=== PATIENT | male | born 1945 | race Caucasian/White ===

== ENCOUNTER 2020-12-17 09:50 | Outpatient (RCR) | payer MEDICARE, SELFPAY | END 2021-02-05 09:55 | disposition home or self-care (01) | LOC: PT 09:50 | PROVIDERS: Visit Provider Internal Medicine Cardiovascular Disease | DX: I25.10 Atherosclerotic heart disease of native coronary artery without angina pectoris (principal); I50.9 Heart failure, unspecified | CPT/HCPCS: 93798 ==

== ENCOUNTER 2023-04-17 09:40 | Outpatient (CLI) | payer MEDICARE, SELFPAY | END 2023-04-17 23:59 | LOC: RT 09:41 | PROVIDERS: PCP Family Medicine; Visit Provider Nurse Practitioner Family | DX: Z79.899 Other long term (current) drug therapy (principal); E78.5 Hyperlipidemia, unspecified; I10 Essential (primary) hypertension; R41.3 Other amnesia | CPT/HCPCS: 95816 ==

== ENCOUNTER 2023-04-20 10:39 | Outpatient (CLI) | payer MEDICARE, SELFPAY ==
[2023-04-20 11:18] LABS: Basophils # 0.1 K/mm3 (0-0.2); Basophils % 1.1 % (0.1-2.0); Eosinophils # 0.1 K/mm3 (0.0-0.4); Eosinophils % 2.4 % (0.1-12.0); Hematocrit 47.6 % (42.0-52.0); Hemoglobin 15.3 g/dL (14.1-18.0); Lymphocytes # 1.6 K/mm3 (0.7-4.5); Lymphocytes % 34.5 % (10-50); Mean Corpuscular HGB Conc 32.1 g/dL (31.8-35.4); Mean Corpuscular Hemoglobin 31.1 pg (27.0-31.2); Mean Corpuscular Volume 97.1 fl (80-94); Mean Platelet Volume 7.1 fl (7.4-10.4); Monocytes # 0.6 K/mm3 (0.1-1.0); Monocytes % 13.3 % (1.7-9.3); Neutrophils # 2.2 K/mm3 (1.8-7.8); Neutrophils % 48.7 % (37.0-80.0); Platelet Count 225 K/mm3 (142-424); Red Cell Distribution Width 14.9 % (11.5-17.5); White Blood Count 4.6 K/mm3 (4.8-10.8)
[2023-04-20 11:29] LABS: Chloride 104 mmol/L (98-107); Sodium 140 mmol/L (136-145)
[2023-04-20 11:32] LABS: Alanine Aminotransferase 22 U/L (12-78); Alkaline Phosphatase 100 U/L (38-126); Aspartate Amino Transferase 38 U/L (17-59); Bilirubin,Total 0.9 mg/dl (0.2-1.3); Blood Urea Nitrogen 21 mg/dl (9-20); Estimated Glomerular Filt Rate 82 ml/min (>60); GFR (African American) 99 ML/MIN (>60)
[2023-04-20 11:33] LABS: Albumin Level 4.4 g/dl (3.5-5.0); Albumin/Globulin Ratio 1.8 (1.1-1.8); Calcium 9.7 mg/dl (8.4-10.2); Carbon Dioxide 31 mmol/L (22.0-30.0); Globulin 2.5 g/dL (1.3-3.2); Glucose 96 mg/dl (74-100); Total Protein,Serum 6.9 g/dl (6.3-8.2)
[2023-04-20 12:00] LABS: Erythrocyte Sedimentation Rate 15 mm/hr (0-20)
[2023-04-20 12:06] LABS: Hemoglobin A1C 6.1 % (4.0-6.0)
[2023-04-20 12:44] LABS: Thyroid Stimulating Hormone 2.64 uIU/mL (0.465-4.68)
[2023-04-20 12:55] LABS: C-Reactive Protein < 0.3 mg/L (0-4)
[2023-04-20 13:19] LABS: Vitamin B12 380 pg/mL (239-931)
[2023-04-21 15:27] LABS: Rapid Plasma Reagin Ab Titer Non Reactive titer (NonRea<1:1)
[2023-04-24 10:14] LABS: Antinuclear Antibodies (ANA) Negative
== END 2023-04-20 23:59 ==
LOC: LAB 10:40
PROVIDERS: PCP Family Medicine; Visit Provider Nurse Practitioner Family
DX: Z68.36 Body mass index [BMI] 36.0-36.9, adult (principal); G47.33 Obstructive sleep apnea (adult) (pediatric); R73.03 Prediabetes; E78.49 Other hyperlipidemia; I10 Essential (primary) hypertension; R41.3 Other amnesia; E66.9 Obesity, unspecified
CPT/HCPCS: 36415; 80053; 82607; 82746; 83036; 84443; 85025; 85651; 86038; 86140; 86225; 86235; 86593

== ENCOUNTER 2023-05-03 08:02 | Outpatient (CLI) | payer MEDICARE, SELFPAY ==
--- NOTE | 2023-05-03 08:02 | MR_ITS ---
FINAL REPORT CLINICAL HISTORY: Memory loss, history of skin cancer 23ml prohance injected COMPARISON: None FINDINGS: Multiplanar MR imaging of the brain was performed without and with contrast. There is no evidence of intracranial hemorrhage or mass. No abnormal extra-axial fluid collection is seen. Small scattered foci of abnormal signal in the deep white matter which is nonspecific and probably due to chronic ischemia. There is no evidence of shift of the midline structures. The posterior fossa and brainstem have an unremarkable appearance. No area of abnormal restricted diffusion is identified. No abnormal contrast enhancement is seen. Normal major vessel vascular flow voids are noted. The paranasal sinuses have normal signal voids. IMPRESSION: No acute intracranial abnormality identified. Atrophy and mild changes of chronic ischemia. Reviewed, Interpreted and Dictated by Mario Razo MD Transcribed by Juanis Garcia Authenticated and [facility]
[2023-05-03] MEDS: SODIUM CHLORIDE 0.9% 10ML SYR (RAD ONLY) 10 ML IV (09:05)
[2023-05-03] MEDS: GADOTERIDOL INJ 17ML SYRINGE 23 ML IV (09:05)
== END 2023-05-03 23:59 ==
LOC: RAD 08:02
PROVIDERS: PCP Family Medicine; Visit Provider Nurse Practitioner Family
DX: Z68.36 Body mass index [BMI] 36.0-36.9, adult (principal); G47.33 Obstructive sleep apnea (adult) (pediatric); R73.03 Prediabetes; E78.49 Other hyperlipidemia; I10 Essential (primary) hypertension; Z85.828 Personal history of other malignant neoplasm of skin; R41.3 Other amnesia; E66.9 Obesity, unspecified
CPT/HCPCS: 70553; A9576

== ENCOUNTER → 2023-05-16 12:54 | Outpatient (CLI) | payer MEDICARE, SELFPAY | LOC: SL 12:55 | PROVIDERS: PCP Family Medicine; Visit Provider Nurse Practitioner Family | DX: Z68.36 Body mass index [BMI] 36.0-36.9, adult (principal); G47.33 Obstructive sleep apnea (adult) (pediatric); R73.03 Prediabetes; E78.49 Other hyperlipidemia; I10 Essential (primary) hypertension; E66.9 Obesity, unspecified | CPT/HCPCS: 94762 ==

== ENCOUNTER 2023-09-04 14:49 | Outpatient (POV) | payer MEDICARE, SELFPAY ==
--- NOTE | 2023-09-04 15:08 | A.OFFVIS_ITS ---
HPI Data of Consult Patient: new to practice Consult date: 09/04/23 Requesting Physician: Giana Mckay APRN Primary Care Provider: Kalen Jimenez Consult Narrative Reason for consult: Left hip pain History of present illness: Mr. Turpin is a 77 year old male who presents today as a new patient. He is a referral from Dr. Kalen Jimenez' office. Today he rates his pain a 2 out of 10 currently however does state that when his pain flares it will go to a 10 out of 10 in severity. He does state the pain can get worse with increased activity and that [place] did [place] get [place] from the beach and that some days walking was fine however other days he wouldnt be able to function for long periods of time and would have to stop and take multiple breaks. Patient does state when it does flareup it does interfere with his ability to perform activities of daily living such as cooking and cleaning. Patient denies any prior surgery or injection history. He does state it has been going on for about 4 to 5 months unrelated to any specific injury or trauma. He does state that sometimes rubbing or adding pressure along the outer aspect of his left hip does help the pain. Patient has been using Tylenol arthritis along with heat and Voltaren over the last several months with no additional relief. Patient denies any prev ious imaging. patient is not on any scheduled medications. His Ander has been reviewed and is appropriate. CC: Giana Mckay APRN [facility] Disclaimer: The information contained in this section may have been updated after the patient was seen, as this information can be updated by other users. Medical History (Updated 09/04/23 @ 15:29 by Giana Mckay APRN) History of renal calculi Gout Hypothyroidism Surgical History History of ankle surgery History of heart artery stent Family History Other Cancer Coronary artery disease Hyperlipidemia Social History Smoking Status: Never smoker alcohol intake: former substance use type: denies use current occupational status: retired Travel in the last 8 weeks: None household members: spouse housing: house marital status: Review of Systems Review of Systems Review of systems:: pertinent systems reviewed and negative unless documented below Review of systems (narrative): Review of Systems: General: No recent weight changes, no fever, no sleep disturbances Respiratory: No cough, no shortness of air, no recurring pulmonary infections Cardiovascular/peripheral vascular: No chest pain, no palpitations, no edema, no shortness of breath Gastrointestinal: No new onset incontinence, normal bowel movements reported Genitourinary: No new onset incontinence Musculoskeletal: Left hip pain Psychiatric: [Normal mood/affect] Neurological: [Denies weakness in extremities], [denies balance issues] Meds Home Medications and Allergies Home Medications ?Medication ?Instructions ?Recorded ?Confirmed ?Type allopurinol 300 mg tablet 300 mg PO DAILY 04/13/23 09/04/23 History atorvastatin 80 mg tablet 80 mg PO HS 04/13/23 09/04/23 History bisoprolol fumarate 5 mg tablet 5 mg PO DAILY 04/13/23 09/04/23 History colchicine 0.6 mg tablet 0.6 mg PO DAILY 04/13/23 09/04/23 History fluoxetine 20 mg capsule 20 mg PO DAILY 04/13/23 09/04/23 History levothyroxine 88 mcg tablet 88 mcg PO DAILY 04/13/23 09/04/23 History omeprazole 20 mg capsule,delayed 20 mg PO DAILY 04/13/23 09/04/23 History release potassium chloride 20 mEq 20 meq PO DAILY 04/13/23 09/04/23 History tablet,extended release(part/cryst) rivaroxaban 20 mg tablet (Xarelto) 20 mg PO DAILY 04/13/23 09/04/23 History memantine 5 mg tablet 5 mg PO BID #60 tabs 06/07/23 09/04/23 Rx New Prescriptions to Start Prescriptions: Allergies Allergy/AdvReac Type Severity Reaction Status Date / Time oxaprozin [From Daypro] Allergy Intermediate Rash Verified 09/04/23 15:04 Objective Narrative: Physical Exam: General: Alert and oriented x3, no acute distress, pleasant and cooperative Lungs: Respirations even and unlabored, symmetrical chest expansion Eyes: PERRL Musculoskeletal: Flexion and extension of lumbar [spine] somewhat guarded secondary to pain, [antalgic gait noted] point tenderness along left greater trochanteric bursa Neurological: Speech clear, no gross sensory deficit Assessment and Plan *Assessment and plan (1) Greater trochanteric bursitis of left hip: Status: Acute Category: Medical Code(s): M70.62 - Trochanteric bursitis, left hip (2) Left hip pain: Status: Acute Category: Medical Code(s): M25.552 - Pain in left hip Plan Patient is experiencing worsening pain in his left hip with limited range of motion of his lumbar spine and point tenderness along his left greater trochante antonio bursa. I have discussed with the patient that he may benefit from a greater trochanteric bursa injection. Risk and benefits were discussed with the patient and he would like to proceed forward with this plan of care. Patient has tried and failed conservative therapy including continued at home stretching exercise for longer than 6 weeks with no additional change. Patient has also tried ove [id number] medications, heat and ice and topicals. Patient will be ordered compounded cream. Patient will be scheduled for a left greater trochanteric bursa injection under fluoroscopy. Patient has been instructed to contact the clinic with any concerns before the next appointment. Dr. Calderon has reviewed this note and agrees with this plan of care. This note was dictated using voice recognition software and make contain errors or omissions. All injections are used with Lidocaine or Bupivacaine and Depo Medrol.
[2023-09-04 15:24] VITALS: BP 138/69; PULSE 52; RESP 18; O2SAT 94; BMI 34.0
== END 2023-09-04 23:59 | disposition home or self-care (01) ==
LOC: SC.PAIN 14:50
PROVIDERS: PCP Family Medicine; Visit Provider Nurse Practitioner Family
DX: M70.62 Trochanteric bursitis, left hip (principal); M25.552 Pain in left hip
CPT/HCPCS: 99202; G0463

== ENCOUNTER 2023-09-19 11:03 | Day surgery (SDC) | payer MEDICARE, SELFPAY ==
[2023-09-19 11:10] VITALS: BP 158/89; PULSE 51; RESP 16; TEMP 36.7; O2SAT 94; BMI 35.5
--- NOTE | 2023-09-19 11:40 | P.PCN_ITS ---
Procedure Date: 09/19/23 Time: 11:35 Anesthesiologist:: Robert Gonzalez CRNA Complications:: None Pre-procedure Diagnosis:: Left trochanteric bursitis. Post-procedure Diagnosis:: Same. Indications for Procedure:: Patient is a pleasant 78-year-old male comes our clinic today for left trochante antonio bursa injection. Patient has extreme point tenderness over the left lateral hip area. He rates his pain 7/10. Procedure Details:: Procedure:Left trochanteric bursa injection under fluoroscopy We then moved to the left trochanteric bursa.~ C-arm fluoroscopy was used to view the left greater trochanter.~ The skin and subcutaneous tissues overlying the left greater trochanter were anesthetized using lidocaine, 1.5% and a 25- gauge needle.~ After this, a 22-gauge spinal needle was inserted and advanced until it contacted the left greater trochanter.~ Dye was injected and good spread was seen throughout the left trochanteric bursa. After this, approximately 5 mL of bupivacaine, 0.25% and Depo-Medrol, 40 mg was incrementally injected into the left trochanteric bursa.~ The patient tolerated the procedure well with no complications. Plan and Disposition:: Patient was discharged without incident.
[2023-09-19 11:43] VITALS: BP 137/60; PULSE 46; RESP 18; O2SAT 95
[2023-09-19] MEDS: BUPIVACAINE 0.25% 10ML INJ 25 MG IJ (13:14)
[2023-09-19] MEDS: LIDOCAINE 1% 5ML PF VIAL 5 ML (13:14)
[2023-09-19] MEDS: methylPREDNISolone ACETATE 80MG/ML VIAL 80 MG (13:14)
[2023-09-19 13:19] VITALS: BP 144/74; PULSE 75; RESP 18; O2SAT 96
[2023-09-19 13:23] VITALS: BP 144/74; PULSE 75; RESP 18; O2SAT 96
== END 2023-09-19 11:43 | disposition home or self-care (01) ==
PROVIDERS: PCP Family Medicine; Visit Provider Nurse Anesthetist, Certified Registered
DX: M70.62 Trochanteric bursitis, left hip (principal)
CPT/HCPCS: 20610; 77002; J1010

== ENCOUNTER 2023-10-05 15:19 | Outpatient (POV) | payer MEDICARE, SELFPAY ==
[2023-10-05 15:30] VITALS: BP 158/74; PULSE 51; RESP 16; O2SAT 96; BMI 33.5
--- NOTE | 2023-10-05 15:41 | A.OFFVIS_ITS ---
[facility] Disclaimer: The information contained in this section may have been updated after the patient was seen, as this information can be updated by other users. Medical History History of renal calculi Gout Hypothyroidism Surgical History History of ankle surgery History of heart artery stent Family History Other Cancer Coronary artery disease Hyperlipidemia Social History Smoking Status: Never smoker alcohol intake: former substance use type: denies use current occupational status: unemployed Travel in the last 8 weeks: None household members: spouse housing: house marital status: PM Subjective & Objective Subjective Subjective:: Patient is a pleasant 78-year-old male who presents today for follow-up of left trochanteric bursa injection on 09/19/2023. Today he rates his pain a 4 out of 10 and states that he really did not notice huge amounts of improvement following this injection. He does feel like he is still having pain in and around that hip and buttocks area and describes it as an aching, throbbing sensation that is worse with increased activity or ambulation. He does state the pain will get worse and was typically going about a 6 out of 10 or more depending on how much walking he does. Patient does state that the pain interferes with his ability perform activities of daily living such as cooking and cleaning. Patient is interested in additional injection therapy. Patient does state that he did end up getting the compounded cream and it did help some. He states that at least helps take the edge off. His Ander has been reviewed and is appropriate. Review of Systems: General: No recent weight changes, no fever, no sleep disturbances Respiratory: No cough, no shortness of air, no recurring pulmonary infections Cardiovascular/peripheral vascular: No chest pain, no palpitations, no edema, no shortness of breath Gastrointestinal: No new onset incontinence, normal bowel movements reported Genitourinary: No new onset incontinence Musculoskeletal: Left hip/buttocks pain Psychiatric: [Normal mood/affect] Neurological: [Denies weakness in extremities], [denies balance issues] Pain at rest (0-10 scale): 6 Objective Objective:: Physical Exam: General: Alert and oriented x3, no acute distress, pleasant and cooperative Lungs: Respirations even and unlabored, symmetrical chest expansion Eyes: PERRL Musculoskeletal: Flexion and extension of lumbar [spine] somewhat guarded secondary to pain, [antalgic gait noted] point tenderness along the left piriformis muscle Neurological: Speech clear, no gross sensory deficit Has patient had previous pain injection?: Yes Percent improvement in pain since last injection: Minimal Conservative treatment options previously tried: Home exercise plan Length of treatment: Longer than 6 weeks Meds Home Medications and Allergies Home Medications ?Medication ?Instructions ?Recorded ?Confirmed ?Type allopurinol 300 mg tablet 300 mg PO DAILY 04/13/23 10/05/23 History atorvastatin 80 mg tablet 80 mg PO HS 04/13/23 10/05/23 History bisoprolol fumarate 5 mg tablet 5 mg PO DAILY 04/13/23 10/05/23 History colchicine 0.6 mg tablet 0.6 mg PO DAILY 04/13/23 10/05/23 History fluoxetine 20 mg capsule 20 mg PO DAILY 04/13/23 10/05/23 History levothyroxine 88 mcg tablet 88 mcg PO DAILY 04/13/23 10/05/23 History omeprazole 20 mg capsule,delayed 20 mg PO DAILY 04/13/23 10/05/23 History release potassium chloride 20 mEq 20 meq PO DAILY 04/13/23 10/05/23 History tablet,extended release(part/cryst) rivaroxaban 20 mg tablet (Xarelto) 20 mg PO DAILY 04/13/23 10/05/23 History memantine 10 mg tablet 10 mg PO BID #60 tabs 09/14/23 10/05/23 Rx New Prescriptions to Start Prescriptions: Allergies Allergy/AdvReac Type Severity Reaction Status Date / Time oxaprozin [From Daypro] Allergy Intermediate Rash Verified 09/19/23 11:16 Assessment and Plan *Assessment and plan (1) Myofascial pain on left side: Status: Acute Category: Medical Code(s): M79.18 - Myalgia, other site (2) Piriformis syndrome of left side: Status: Acute Category: Medical Code(s): G57.02 - Lesion of sciatic nerve, left lower limb Plan Patient is experiencing still pain all along his left hip and buttocks area. Patient did have point tenderness along his left piriformis muscle during today's visit. I did discuss with patient risk and benefits of piriformis injection. He would like to proceed forward with this plan of care. Patient has tried and failed conservative therapy including continued at home stretching exercise for longer than 6 weeks. Patient will be scheduled for a left piriformis muscle injection. This will be done without fluoroscopy or ultrasound. Patient has been instructed to contact the clinic with any concerns before the next appointment. Dr. Calderon has reviewed this note and agrees with this plan of care. This note was dictated using voice recognition software and make contain errors or omissions. All injections are used with Lidocaine or Bupivacaine and Depo Medrol.
== END 2023-10-05 23:59 | disposition home or self-care (01) ==
LOC: SC.PAIN 15:21
PROVIDERS: PCP Family Medicine; Visit Provider Nurse Practitioner Family
DX: M79.18 Myalgia, other site (principal); G57.02 Lesion of sciatic nerve, left lower limb; Z73.89 Other problems related to life management difficulty
CPT/HCPCS: 99212; G0463

== ENCOUNTER 2023-10-24 13:39 | Day surgery (SDC) | payer MEDICARE, SELFPAY ==
--- OUTSIDE RECORDS SUMMARY | 2023-10-24 13:42 | XMS_ITS | Continuity of Care Document ---
Author Organization [facility] Phone Care Team Providers Care Ortho Tech Name Role Phone BRIDGET DIDI Lin Primary Care AUSTIN BONDS Primary Attending AUSTIN BONDS Admitting AUSTIN BONDS Unavailable ALLERGIES AND ADVERSE REACTIONS ALLERGIES AND ADVERSE REACTIONS Code System Allergy Substance Adverse Reaction Date Reaction (Severity) Comment [place] [address] RXNorm DAYPRO Adverse reaction to substance un active [id number] on October 18, 2023 4:05:[place] [address] RXNorm LISINOPRIL Adverse reaction to substance u active [id number] on October 18, 2023 4:05:43 PM [place] 7352 RXNorm NIASPAN Adverse reaction to substance u active [id number] on October 18, 2023 4:05:43 PM [place] 8683 RXNorm PROBENECID Adverse reaction to substance u active [id number] on October 18, 2023 4:05:43 PM [facility] FAMILY HISTORY RELATION: Father Status: Cause of : Unknown Age at : Unknown SNOMED-CT Diagnosis Age At Onset Information not available RELATION: Mother Status: Cause of : Unknown Age at : Unknown SNOMED-CT Diagnosis Age At Onset [id number] Malignant neoplastic disease RESULTS Patient: KARINANABILDelia ROB Tesfaye JR Date of : September [birth year] LABORATORY RESULTS Information is not available LABORATORY NARRATIVE RESULTS Information is not available RADIOLOGY RESULTS ORDER 100: LUMBAR 2 TO 3V (L OINC: 50631-9) ORDER DATE: October 18, 2023 4:19:00 PM [facility] PERFORMING LAB: [address] [id number] Final Result Date: October 18, 2023 4:42:36 PM [address] [place] [address] Name: ROB JEAN Exam Date: 10/18/2023 : 1945 Age 78 years Gender: M Physician: Facility: [facility] Facility HSV: Outpatient Exam: LUMBAR 2 TO 3V PROCEDURE: XR LUMBAR SPINE 2-3 VIEWS TECHNIQUE: Limited 3 views lumbar spine. COMPARISON: CT abdomen pelvis 04/11/2023. HISTORY: Lower back pain without trauma/injury. No trauma. FINDINGS: The vertebral body heights are preserved. Multilevel bone and disc degenerative changes. There is no spondylolisthesis. Alignment is satisfactory. Right upper quadrant postoperative changes consistent with cholecystectomy. 1.1 cm rounded calcification overlying the right renal shadow, possibly calculus. IMPRESSION: 1. No acute bone abnormality. 2. Multilevel degenerative changes. 3. Possible right renal calculus. Electronically signed by: Zohaib Laughlin MD 10/18/2023 01:30 PM EDT RP Dictated By: Zohaib Laughlin Transcribed By: Transcribed On: 10/18/2023 12:42 PM Electronically signed by: Zohaib Laughlin 10/18/2023 Thank you for referring ROB JEAN to [facility]. Legally authenticated by GUILLAUME FLOYD MD 2023-10-18 12:42:36 ORDER 200: HIP LT 2V (LOINC: 51886-1) ORDER DATE: October 18, 2023 4:19:00 PM [facility] PERFORMING LAB: [address] [id number] Final Result Date: October 18, 2023 4:42:[address] [place] [address] Name: ROB JEAN Exam Date: 10/18/2023 : 1945 Age 78 years Gender: M Physician: Facility: [facility] Facility HSV: Outpatient Exam: HIP LT 2V EXAMINATION: XR PELVIS 1-2 VIEWS TECHNIQUE: Two views of the left hip were obtained. COMPARISONS: None available. HISTORY: Pain without Trauma/Injury. Low back pain radiating down to left leg for one month getting worse. No trauma. FINDINGS: No discrete fracture or malalignment. Moderate to severe osteoarthritic degenerative changes. The joint spaces are located. The soft tissues are unremarkable appearance. No discrete radiopaque foreign bodies identified. 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 Electronically signed by: Zohaib Laughlin MD 10/18/2023 01:25 PM EDT Dictated By: Zohaib Laughlin Transcribed By: Transcribed On: 10/18/2023 12:42 PM Electronically signed by: Zohaib Laughlin 10/18/2023 Thank you for referring ROB JEAN to [facility]. Legally authenticated by GUILLAUME FLOYD MD 2023-10-18 12:42:44 ORDER 300: PELVIS 1 TO 2V (L OINC: 24561-2) ORDER DATE: October 18, 2023 4:19:00 PM [facility] PERFORMING LAB: [address] [id number] Final Result Date: October 18, 2023 4:42:[address] [place] [address] Name: ROB JEAN Exam Date: 10/18/2023 : 1945 Age 78 years Gender: M Physician: Facility: [facility] Facility HSV: Outpatient Exam: PELVIS 1 TO 2V EXAMINATION: XR PELVIS 1-2 VIEWS TECHNIQUE: One view of the pelvis obtained. COMPARISONS: CT abdomen pelvis 04/11/2023. HISTORY: Pelvic pain, low back pian radiating down to left leg for 1 month. No trauma. FINDINGS: No discrete fracture or malalignment. Bilateral hip joint osteoarthritis, left worse than right. The joint spaces are located. The soft tissues are unremarkable appearance. No discrete radiopaque foreign bodies identified. IMPRESSION: No discrete acute bone abnormality. Electronically signed by: Zohaib Laughlin MD 10/18/2023 01:26 PM EDT Dictated By: Zohaib Laughlin Transcribed By: Transcribed On: 10/18/2023 12:42 PM Electronically signed by: Zohaib Laughlin 10/18/2023 Thank you for referring ROB JEAN to [facility]. Legally authenticated by GUILLAUME FLOYD MD 2023-10-18 12:42:48 PATHOLOGY NARRATIVE RESULTS Information is not available MICROBIOLOGY RESULTS No Micro Labs/Results Exist for Patient BLOOD ADMIN RESULTS Information is not available MEDICATIONS HOME MEDICATIONS Status RXNORM [facility] Medication Dose Route Frequency Dates Comments Reported By Updated By Active 765062 49967 34726 1 allopurinol 300 mg tablet 300.0 MG ORAL DAILY Last Dose: [id number] on 2023 4:05:46 PM UT Active 331740 56431 10467 0 atorvastatin 80 mg tab 80.0 MG ORAL DAILY Last Dose: [id number] on 2023 4:05:46 PM UT Active 300671 44632 13926 0 bisoprolol fumarate 5 mg tab 2.5 MG ORAL DAILY Last Dose: [id number] on 2023 4:05:46 PM UT Active 490131 76733 27102 0 colchicine 0.6 mg tablet 0.6 MG ORAL DAILY Last Dose: [id number] on 2023 4:05:46 PM UT Active 308117 25093 05951 9 levothyroxin e 88 mcg tab 88.0 MCG ORAL DAILY Last Dose: [id number] on 2023 4:05:46 PM UT Active 040845 66783 09061 0 potassium chloride 20 mEq tablet, extended release 20.0 MEQ ORAL DAILY Last Dose: [id number] on 2023 4:05:46 PM UTC Active FreeT extMe d Prilosec 20 MG 20.0 MG ORAL DAILY Last Dose: [id number] on 2023 4:05:46 PM UTC Active 245332 22580 04259 0 Triamterene- HCTZ Tablet 37.5-25 MG 1.0 TAB ORAL DAILY Last Dose: [id number] on 2023 4:05:46 PM UTC Active 1464614 57322 41244 0 Xarelto Tablet 20 MG 20.0 MG ORAL DAILY Last Dose: [id number] on 2023 4:05:46 PM UT DISCHARGE MEDICATIONS Status RXNORM NDC Medication Dose Route Frequency Dates Comments Physician Updated By No Discharge Medication Info rmation Available INPATIENT MEDICATIONS Status RXNORM NDC Medication Dose Route Frequency Rat e Quantity Dates Comments Physician Updated By Discont inued [id number] 2828 3025 803 METHYLPREDN ISOLONE SODIUM SUCC 125 MG SOLR 125.0 MG INTRAV ENOUS ONE TIME ONLY Start: 2023 4:39:0 0 PM UTC End: 2023 4:39:0 0 PM UTC VAMSHI Willoughby MD INTERFAC ED on 2023 4:38:00 PM UT Discont inued 066760 1998 4089 511 NORCO 5-325 MG TABS 1.0 TAB ORAL ONE TIME ONLY Start: 2023 4:41:0 0 PM UTC End: 2023 4:41:0 0 PM UTC VAMSHI Willoughby MD INTERFAC ED on 2023 4:39:00 PM UT SOCIAL HISTORY SOCIAL HISTORY SNOMED-CT Social History Element Description Effective Dates Offered Cessation Comment UpdatedBy [id number] Historical Tobacco smoking status Never Smoked [id number] on May 22, 2023 2:32:01 PM UT SOCIAL HISTORY - Gender Sex: Male SOCIAL HISTORY - Status : status i nformation is not available Intention in Next Year: intention information is not available SOCIAL HISTORY - Sexual Behavior Sexual Orientation Gender Identity SNOMED-CT Description SNO MED -CT Description Activity Level No of Partners Partner Type UpdatedBy Information is not available VITAL SIGNS PATIENT VITAL SIGNS This section displays the mo st recent value for each vital sign as of October 20, 2023 5:20:33 AM UT Loinc Code Vital Sign Activity Date Result Updated By 8310-5 Body temperature October 17 3:57:00 PM UTC 98.6 [degF] [id number] on October 19, 2023 5:35:[place] [address]-1 Body weight Measured October 072023 5:35:10 PM UTC 109.769 kg (242.0 lb) [id number] on October 19, 2023 5:35:10 PM UTC 8462-4 Diastolic blood pressure October 18, 2023 5:18:00 PM UTC 73.0 mm[Hg] [id number] on October 19, 2023 5:35:12 PM UTC 8867-4 Heart rate October 17 5:18:00 PM UTC 68 /min [id number] on October 19, 2023 5:35:12 PM UTC 43155-7 Oxygen saturation in Arterial blood by Pulse oximetry October 18, 2023 5:18:00 PM UTC 97.0 % RHX6951 on October 19, 2023 5:35:12 PM UTC 8480-6 Systolic blood pressure October 18, 2023 5:18:00 PM UTC 130.0 mm[Hg] VPL4749 on October 19, 2023 5:35:12 PM UTC PEDIATRIC GROWTH CHART - VITAL SIGNS This section displays Head C ircumference Percentile, Weight for Length Percentile and BMI Percentile Loinc Code Pediatric Measure Age (Months) Result Updat ed By No Pediatric Growth Chart Pe rcentile Information Available. HEALTH CONCERNS Problems Concern Status Health Concern problem infor mation not available. Smoking Status Status Years Used Consumed packs p er day Health Concern smoking histo ry information not available. Family History Concern Status Health Concern family histor y information not available. ENCOUNTERS ENCOUNTER INFORMATION Reason for Visit BACK PAIN Admission October 18, 2023 3:52:00 PM [place] C [address] [address] Discharge October 18, 2023 5:34:00 PM UT C DISCHARGED TO HOME OR SELF CARE ENCOUNTER DIAGNOSES Notes information is not aleyda ilable. Code System Diagnosis Onset Date Diagnosis information is not available. 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, LUMBAR REGION [id number] on October 20, 2023 5:19:56 AM UTC I10 ICD10 ESSENTIAL (PRIMARY) HYPERTEN VINCE [id number] on October 20, 2023 5:19:56 AM UT K21.9 ICD10 GASTRO-ESOPHAGEA L REFLUX DISEASE WITHOUT ESOPHAGITIS [id number] on October 20, 2023 5:19:56 AM UT E78.5 ICD10 HYPERLIPIDEMIA, UNSPECIFIED YKR5578 on October 20, 2023 5:19:56 AM UT E66.9 ICD10 OBESITY, UNSPECIFIED [id number] on October 20, 2023 5:19:56 AM UT Z68.33 ICD10 BODY MASS INDEX [BMI] 33.0-3 3.9, ADULT GVQ7921 on October 20, 2023 5:19:56 AM UT E03.9 ICD10 HYPOTHYROIDISM, UNSPECIFIED [id number] on October 20, 2023 5:19:56 AM [facility] Z79.890 ICD10 HORMONE REPLACEMENT THERAPY YSU2361 on October 20, 2023 5:19:56 AM UT Z95.5 ICD10 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 [id number] on October 20, 2023 5:19:56 AM UT Z88.8 ICD10 ALLERGY STATUS T O OTHER DRUGS, MEDICAMENTS AND BIOLOGICAL SUBSTANCES [id number] on October 20, 2023 5:19:56 AM [facility] Z79.899 ICD10 OTHER ART HANDLER (CURRENT) DR UG THERAPY [id number] on October 20, 2023 5:19:56 AM [facility] Z79.01 ICD10 ART HANDLER (CURRE NT) USE OF ANTICOAGULANTS [id number] on October 20, 2023 5:19:56 AM [facility] CARE TEAM Care Ortho Tech Role DIDI GILL Primary Care AUSTIN BONDS Primary Attending AUSTIN BONDS Admitting AUSTIN BONDS Referring CARE TEAM CARE assembler chassis Role on Team Status Start Date End Date Update d By VAMSHI Willoughby MD Referring normal October 18, 2023 4:43:15 PM [facility] October 18, 2023 5:34:00 PM [facility] [id number] on October 18, 2023 4:43:15 PM [facility] VAMSHI Willoughby MD Attending normal October 18, 2023 4:43:15 PM [facility] October 18, 2023 5:34:00 PM [facility] [id number] on October 18, 2023 4:43:15 PM [facility] VAMSHI Willoughby MD Admitting normal October 18, 2023 4:43:15 PM [facility] October 18, 2023 5:34:00 PM [facility] [id number] on October 18, 2023 4:43:15 PM [facility] BRIDGET Lin MD PHY PCP normal October 18, 2023 3:52:54 PM [facility] October 18, 2023 5:34:00 PM [facility] [id number] on October 18, 2023 4:43:15 PM [facility]
--- OUTSIDE RECORDS SUMMARY | 2023-10-24 13:42 | XMS_ITS | Continuity of Care Document ---
Author Organization [facility] Phone Care Team Providers Care Ambulance Officer Name Role Phone BRIDGET DIDI Lin Primary Care SEIVERSYUMIKO Primary Attending SEIVERS, YUMIKO Jensen Unavailable SEIVERS, YUMIKO W Admitting ALLERGIES AND ADVERSE REACTIONS ALLERGIES AND ADVERSE REACTIONS Code System Allergy Substance Adverse Reaction Date Reaction (Severity) Comment [place] [address] RXNorm DAYPRO Adverse reaction to substance un active [id number] on July 29, 2021 2:19:[place] [address] RXNorm LISINOPRIL Adverse reaction to substance u active HUZ1575 on July 29, 2021 2:19:25 PM [place] 7354 RXNorm NIASPAN Adverse reaction to substance u active CTM5237 on July 29, 2021 2:19:25 PM UT 8673 RXNorm PROBENECID Adverse reaction to substance u active [id number] on July 29, 2021 2:19:25 PM UT FAMILY HISTORY RELATION: Father Status: Cause of : Unknown Age at : Unknown SNOMED-CT Diagnosis Age At Onset Information not available RELATION: Mother Status: Cause of : Unknown Age at : Unknown SNOMED-CT Diagnosis Age At Onset [id number] Malignant neoplastic disease RESULTS Patient: KARINANABILDelia ROB Tesfaye Date of : [birth year] 17 46 LABORATORY RESULTS ORDER 300: BUN (LOINC: 3094- 0) ORDER DATE: December 06, 2022 11:19:00 AM UT Specimen Source: Serum/Plasm a PERFORMING LAB: [address] [id number] Result Comment: Final Result Date: December 06, 2022 11:37:00 AM UT (TECH: MRB) LOINC TEST FLAG RESULT REFERENCE RANGE UPDA GREGORY BY 3094-0 Urea nitrogen [Mass/volume] in Serum or Plasma N 16 mg/dL 7 mg/dL - 18 mg/dL December 06 11:37:00 AM [facility] (TECH: MRB) ORDER 400: CREATININE (LOINC : 2160-0) ORDER DATE: December 06, 2022 11:19:00 AM UT Specimen Source: Serum/Plasm a PERFORMING LAB: [address] [id number] Result Comment: Final Result Date: December 06, 2022 11:37:00 AM [facility] (TECH: MRB) LOINC TEST FLAG RESULT REFERENCE RANGE UPDA GREGORY BY 2160-0 Creatinine [Mass/volume] in Serum or Plasma N 0.8 mg/dL 0.8 mg/dL - 1.3 mg/dL November 11:37:00 AM [facility] (TECH: MRB) 93613-1 Glomerular filtratio n rate/1.73 sq M.predicted by Creatinine-based formula (MDRD) N 100 mL/min >60 December 06, 2022 11:37:00 AM [facility] (TECH: MRB) LABORATORY NARRATIVE RESULTS Information is not available RADIOLOGY RESULTS ORDER 100: CT CHEST WITH CON TRAST (LOINC: 93857-7) ORDER DATE: December 06, 2022 11:19:00 AM [facility] PERFORMING LAB: [address] [id number] Final Result Date: November 082022 12:39:[address] [place] [address] Name: ROB JEAN Exam Date: 12/06/2022 : 1945 Age 77 years Gender: M Physician: YUMIKO DIANE Facility: [facility] Facility HSV: Outpatient Exam: CT CHEST WITH CONTRAST CT SCAN OF THE CHEST WITHOUT CONTRAST COMPARISON: 02/26/2021 HISTORY: Thoracic aortic aneurysm. PROCEDURE: Axial images were obtained from the lung apex to the mid abdomen by computed tomography. FINDINGS: CHEST: There is no axillary adenopathy. There is no hilar or mediastinal adenopathy. Heart size is enlarged. The ascending aorta measures 5.1 cm. When compared to a similar slice location on the prior CT this measured 5.0 cm, not significant changed. There is atherosclerosis. There is no dissection. There is no pericardial or pleural effusion. There is a small hiatal hernia. There are multiple bilateral renal cysts measuring up to 4.5 cm on the right. The gallbladder is surgically absent. There is scattered atelectasis. No suspicious infiltrate or nodules identified. IMPRESSION: Stable aneurysmal enlargement of the ascending aorta. Films reviewed , interpreted and dictated by Dr. Johnson. Transcribed by Jaylen Iverson PA-C. Dictated By: CYRIL JOHNSON Transcribed By: CYRIL JOHNSON Transcribed On: 12/06/2022 8:39 AM Electronically signed by: CYRIL JOHNSON 12/06/2022 Thank you for referring ROB JEAN to [facility]. Legally authenticated by POPE CYRIL Dooley DO 2022-12-06 08:39:28 PATHOLOGY NARRATIVE RESULTS Information is not available MICROBIOLOGY RESULTS No Micro Labs/Results Exist for Patient BLOOD ADMIN RESULTS Information is not available TREATMENT PLAN DISCHARGE MEDICATIONS Status RXNORM Medication Dose Route Frequency Dates Comments U pdated By Patient discharge medication information is not available. PATIENT OPEN ORDERS Code System Description Frequency Occurrences Priority [place] [address]-5 [facility] Collection method - Specimen ONE TIME 0 Routine December 06, 2022 11:19:00 AM [facility] SEIVERS YUMIKO W SENIOR WINDOWS ENGINEER [id number] on December 06, 2022 11:19:00 AM [facility] SCHEDULED PROCEDURES Code System Description Status Scheduled Date Upd ated By Patient scheduled procedure information is not available. MEDICATIONS HOME MEDICATIONS Status RXNORM Medication Dose Route Frequency Dates Comments R eported By Updated By Drug Treatment Unknown DISCHARGE MEDICATIONS Status RXNORM Medication Dose Route Frequency Dates Comments Physic vale Updated By No Discharge Medication Info rmation Available INPATIENT MEDICATIONS Status RXNORM Medication Dose Route Frequency Rate Quantity Dates Comments Physician Updated By No Inpatient Medication Info rmation Available SOCIAL HISTORY SOCIAL HISTORY SNOMED-CT Social History Element Description Effective Dates Offered Cessation Comment UpdatedBy [id number] Historical Tobacco smoking status Never Smoked Yes [id number] on February 21, 2018 2:29:40 PM [facility] SOCIAL HISTORY - Gender Sex: Male SOCIAL HISTORY - Sexual Behavior Sexual Orientation Gender Identity SNOMED-CT Description SNO MED -CT Description Activity Level No of Partners Partner Type UpdatedBy Information is not available HEALTH CONCERNS Problems Concern Status Health Concern problem infor mation not available. Smoking Status Status Years Used Consumed packs p er day Health Concern smoking histo ry information not available. Family History Concern Status Health Concern family histor y information not available. ENCOUNTERS ENCOUNTER INFORMATION Reason for Visit I71.20 Admission December 06, 2022 11:06:00 AM UTC [address] [address] Discharge December 06, 2022 5:06:00 PM UTC DISCHARGED TO HOME OR SELF CARE ENCOUNTER DIAGNOSES Notes information is not aleyda ilable. Code System Diagnosis Onset Date Diagnosis information is not available. 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, WITHOUT RUPTURE, UNSPECIFIED [id number] on November 28, 2022 5:18:32 PM UT CARE TEAM Care Ambulance Officer Role DIDI GILL Primary Care YUMIKO DIANE Primary Attending YUMIKO DIANE Referring YUMIKO DIANE Admitting CARE TEAM CARE home management supervisor Role on Team Status Start Date End Date Update d By BRIDGET Lin MD PHY PCP normal November 28, 2022 5:18:32 PM UTC December 06, 2022 5:06:00 PM UTC [id number] on November 28, 2022 5:18:32 PM UTC SEIVERS YUMIKO Jensen APRN Referring normal November 28, 2022 5:18:32 PM UTC December 06, 2022 5:06:00 PM UTC [id number] on November 28, 2022 5:18:32 PM UT BENEDICTO Jensen APRN Attending normal November 28, 2022 5:18:32 PM UTC December 06, 2022 5:06:00 PM UTC [id number] on November 28, 2022 5:18:32 PM UT SEIVERS YUMIKO Jensen APRN Admitting normal November 28, 2022 5:18:32 PM UTC December 06, 2022 5:06:00 PM UTC [id number] on November 28, 2022 5:18:32 PM UTC
--- OUTSIDE RECORDS SUMMARY | 2023-10-24 13:42 | XMS_ITS | Continuity of Care Document ---
Author Organization [facility] Phone Care Team Providers Care Dry Yard Worker Name Role Phone ADRIANNA SARAVIA Primary Attending MEAGAN GAMBINO Unavailable DIDI GILL Primary Care ADRIANNA SARAVIA Admitting ADRIANNA SARAVIA Surgeon [phone] ALLERGIES AND ADVERSE REACTIONS ALLERGIES AND ADVERSE REACTIONS Code System Allergy Substance Adverse Reaction Date Reaction (Severity) [place] [address] RXNorm DAYPRO Adverse reaction to substance un active [id number] on July 29, 2021 2:19:[place] [address] RXNorm LISINOPRIL Adverse reaction to substance u active [id number] on July 29, 2021 2:19:25 PM UT 7324 RXNorm NIASPAN Adverse reaction to substance u active [id number] on July 29, 2021 2:19:25 PM UT 8629 RXNorm PROBENECID Adverse reaction to substance u active [id number] on July 29, 2021 2:19:25 PM UT ASSESSMENTS Hypertensive disorder ; Hypothyroidism ; FAMILY HISTORY RELATION: Father Status: Cause of : Unknown Age at : Unknown SNOMED-CT Diagnosis Age At Onset Information not available RELATION: Mother Status: Cause of : Unknown Age at : Unknown SNOMED-CT Diagnosis Age At Onset [id number] Malignant neoplastic disease PROBLEMS PATIENT PROBLEMS Code Description/Comments Category Status Upda cain By [id number] Hypertensive disorder active DEY 5462 on May 22, 2023 2:30:55 PM UT [id number] Hypothyroidism active [id number] on May 22, 2023 2:30:57 PM UT TREATMENT PLAN DISCHARGE MEDICATIONS Status RXNORM Medication Dose Route Frequency Dates Comments U pdated By Continued 126635 allopurinol 300 mg tablet 300 MG BY MOUTH ONCE DAILY Prescri bed: May 24, 2023 11:38:4 3 AM [facility] [id number] on May 24, 2023 11:38:43 AM [facility] Continued 732809 levothyroxine 88 mcg tab 88 MCG BY MOUTH ONCE DAILY Prescri bed: May 24, 2023 11:38:4 3 AM [facility] [id number] on May 24, 2023 11:38:43 AM [facility] Continued 841526 colchicine 0.6 mg tablet 0.6 MG BY MOUTH ONCE DAILY Prescri bed: May 24, 2023 11:38:4 3 AM [facility] [id number] on May 24, 2023 11:38:43 AM [facility] Continued 077074 bisoprolol fumarate 5 mg tab 2.5 MG BY MOUTH ONCE DAILY Prescri bed: May 24, 2023 11:38:4 3 AM [facility] [id number] on May 24, 2023 11:38:43 AM [facility] Continued 621984 atorvastatin 80 mg tab 80 MG BY MOUTH ONCE DAILY Prescri bed: May 24, 2023 11:38:4 3 AM [facility] [id number] on May 24, 2023 11:38:43 AM [facility] Continued Prilosec 20 MG 20 MG BY MOUTH ONCE DAILY Prescri bed: May 24, 2023 11:38:4 3 AM [facility] [id number] on May 24, 2023 11:38:43 AM [facility] Continued 220629 potassium chloride 20 mEq tablet, extended release 20 MEQ BY MOUTH ONCE DAILY Prescri bed: May 24, 2023 11:38:4 3 AM [facility] [id number] on May 24, 2023 11:38:43 AM [facility] Continued 2166373 Xarelto Oral Tablet 20 MG 20 MG BY MOUTH ONCE DAILY Prescri bed: May 24, 2023 11:38:4 3 AM [facility] [id number] on May 24, 2023 11:38:43 AM [facility] Continued 772930 Triamterene-HCT Z Oral Tablet 37.5-25 MG 1 TAB BY MOUTH ONCE DAILY Prescri bed: May 24, 2023 11:38:4 3 AM [facility] [id number] on May 24, 2023 11:38:43 AM [facility] PATIENT OPEN ORDERS Code System Description Frequency Occurrences Priority [place] [address]-8 [facility] Specimen type ONE TIME 0 Routine May 24, 2023 7:25:00 PM [facility] MANJIT RODAS MD [id number] on May 24, 2023 7:26:00 PM [facility] SCHEDULED PROCEDURES Code System Description Status Scheduled Date Upd ated By Patient scheduled procedure information is not available. MEDICATIONS HOME MEDICATIONS Status RXNORM [facility] Medication Dose Route Frequency Dates Comments Reported By Updated By Active [id number] 64088 81238 0 atorvastatin 80 mg tab 80.0 MG BY MOUTH DAILY Last Dose: PATIENT [id number] on May 22, 2023 2:26:35 PM [facility] Active 242519 74181 55015 0 bisoprolol fumarate 5 mg tab 2.5 MG BY MOUTH DAILY Last Dose: PATIENT [id number] on May 22, 2023 2:26:58 PM [facility] Active 470033 60878 15802 9 levothyroxin e 88 mcg tab 88.0 MCG BY MOUTH DAILY Last Dose: PATIENT [id number] on May 22, 2023 2:27:39 PM [facility] Active Cy selby Prilosec 20 MG 20.0 MG BY MOUTH DAILY Last Dose: PATIENT [id number] on May 22, 2023 2:28:31 PM [facility] Active 720328 91753 32742 0 potassium chloride 20 mEq tablet, extended release 20.0 MEQ BY MOUTH DAILY Last Dose: PATIENT [id number] on May 22, 2023 2:28:04 PM [facility] Active 056123 34365 26485 1 allopurinol 300 mg tablet 300.0 MG BY MOUTH DAILY Last Dose: PATIENT [id number] on May 22, 2023 2:26:13 PM [facility] Active 462577 60174 03775 0 colchicine 0.6 mg tablet 0.6 MG BY MOUTH DAILY Last Dose: PATIENT [id number] on May 22, 2023 2:27:17 PM [facility] Active 242938 00096 37926 0 Triamterene- HCTZ Oral Tablet 37.5-25 MG 1.0 TAB BY MOUTH DAILY Last Dose: PATIENT [id number] on May 22, 2023 2:29:17 PM [facility] Active 3560115 12585 20189 0 Xarelto Oral Tablet 20 MG 20.0 MG BY MOUTH DAILY Last Dose: PATIENT [id number] on May 22, 2023 2:29:47 PM [facility] DISCHARGE MEDICATIONS Status RXNORM [facility] Medication Dose Route Frequency Dates Comments Physician Updated By Javan selby [id number] 6427 0121 001 allopurinol 300 mg tablet 300.0 MG BY MOUTH ONCE DAILY Prescr ibed: May 24, 2023 11:38: 43 AM [facility] MANJIT RODAS MD PHY [id number] on May 24, 2023 11:38:43 AM UTC Continue d 306678 2626 0096 809 levothyroxi ne 88 mcg tab 88.0 MCG BY MOUTH ONCE DAILY Prescr ibed: May 24, 2023 11:38: 43 AM [facility] MANJIT RODAS MD PHY [id number] on May 24, 2023 11:38:43 AM UTC Continue d 972866 5685 8037 230 colchicine 0.6 mg tablet 0.6 MG BY MOUTH ONCE DAILY Prescr ibed: May 24, 2023 11:38: 43 AM [facility] MANJIT RODAS MD PHY [id number] on May 24, 2023 11:38:43 AM UTC Continue d 475218 1811 7027 030 bisoprolol fumarate 5 mg tab 2.5 MG BY MOUTH ONCE DAILY Prescr ibed: May 24, 2023 11:38: 43 AM [facility] MANJIT RODAS MD, PHY [id number] on May 24, 2023 11:38:43 AM UTC Continue d 794455 3766 1017 510 atorvastati n 80 mg tab 80.0 MG BY MOUTH ONCE DAILY Prescr ibed: May 24, 2023 11:38: 43 AM [facility] MANJIT RODAS MD PHY [id number] on May 24, 2023 11:38:43 AM UTC Continue d Free Text Med Prilosec 20 MG 20.0 MG BY MOUTH ONCE DAILY Prescr ibed: May 24, 2023 11:38: 43 AM [facility] MANJIT RODAS MD PHY [id number] on May 24, 2023 11:38:43 AM UTC Continue d 572361 4252 0013 400 potassium chloride 20 mEq tablet, extended release 20.0 MEQ BY MOUTH ONCE DAILY Prescr ibed: May 24, 2023 11:38: 43 AM [facility] MANJIT RODAS MD, PHY [id number] on May 24, 2023 11:38:43 AM UTC Continue d 0728871 9800 8057 910 Xarelto Oral Tablet 20 MG 20.0 MG BY MOUTH ONCE DAILY Prescr ibed: May 24, 2023 11:38: 43 AM [facility] MANJIT RODAS MD PHY [id number] on May 24, 2023 11:38:43 AM UT Continue d 245336 0904 9009 030 Triamterene -HCTZ Oral Tablet 37.5-25 MG 1.0 TAB BY MOUTH ONCE DAILY Prescr ibed: May 24, 2023 11:38: 43 AM UT MANJIT RODAS MD PHY [id number] on May 24, 2023 11:38:43 AM [facility] INPATIENT MEDICATIONS Status RXNORM ND Medication Dose Route Frequency Rat e Quantity Dates Comments Physician Updated By Milli inued 768923 5941 4775 000 lactated ringers (LR) SOLN 1000. 0 ML INTRAV ENOUS NOW 125.0 ML/HR Start: May 24, 2023 10:39: 00 AM UT End: May 24, 2023 11:38: 43 AM UT MANJIT RODAS MD [id number] on May 24, 2023 12:56:00 PM [facility] Disccarlin inued 6332 3027 050 propofol (DIPRIVAN) 500 MG/50ML EMUL 50.0 ML INTRAV ENOUS ONE TIME ONLY Start: May 24, 2023 2:09:0 0 PM UT End: May 24, 2023 2:09:0 0 PM UT MANJIT RODAS MD INTERFAC ED on May 24, 2023 2:08:00 PM UT SOCIAL HISTORY SOCIAL HISTORY SNOMED-CT Social History Element Description Effective Dates Offered Cessation Comment UpdatedBy [id number] Current Tobacco smoking status Never Smoked [id number] on May 22, 2023 2:32:01 PM UT [...] value for each vital sign as of May 30, 2023 3:47:28 PM [facility] Loinc Code Vital Sign Activity Date Result Updated By 8302-2 Body height May 22, 2023 2:25:29 PM UT 180.34 cm (71.0 in) [id number] on May 22, 2023 2:25:29 PM [facility] 28465-1 Body mass index (BMI) [Ratio] May 22, 2023 2:25:29 PM UTC 35.84 kg/m2 [id number] on May 22, 2023 2:25:29 PM UT 3140-1 Body Surface Area Derived From Formula May 22, 2023 2:25:29 PM UTC 2.346 m2 [id number] on May 22, 2023 2:25:[place] [address]-7 Body weight Measured May 21 2:25:29 PM UTC 116.573 kg (257.0 lb) [id number] on May 22, 2023 2:25:29 PM UT PEDIATRIC GROWTH CHART - VITAL SIGNS This [...] available. ENCOUNTERS ENCOUNTER INFORMATION Reason for Visit LEFT LOWER QUADRANT PAIN Admission May 24, 2023 12:29:00 PM UT B [facility] [address] [facility] [address] Discharge May 24, 2023 5:29:00 PM UT DI SCHARGED TO HOME OR SELF CARE ENCOUNTER DIAGNOSES Notes information is not aleyda ilable. Code System Diagnosis Onset Date Diagnosis information is not available. 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 RNIA WITHOUT OBSTRUCTION OR GANGRENE [id number] on May 30, 2023 3:42:10 PM UTC K64.8 ICD10 OTHER HEMORRHOIDS FAP1923 on May 30, 2023 3:42:10 PM UTC K31.7 ICD10 POLYP OF STOMACH AND DUODENU M AAO0873 on May 30, 2023 3:42:10 PM UTC 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 [id number] on May 30, 2023 3:42:10 PM UTC 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 [id number] on May 30, 2023 3:42:10 PM UTC D12.3 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 [id number] on May 30, 2023 3:42:10 PM UT G47.30 ICD10 SLEEP APNEA, UNSPECIFIED FGE 9811 on May 30, 2023 3:42:10 PM UT I10 ICD10 ESSENTIAL (PRIMARY) HYPERTEN VINCE [id number] on May 30, 2023 3:42:10 PM UTC I25.10 ICD10 ATHEROSCLEROTIC HEART DISEASE OF [place] CORONARY ARTERY WITHOUT ANGINA PECTORIS [id number] on May 30, 2023 3:42:10 PM UT Z95.5 ICD10 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 [id number] on May 30, 2023 3:42:10 PM UT Z86.718 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 ODC5697 on May 30, 2023 3:42:10 PM UT K21.9 ICD10 GASTRO-ESOPHAGEA L REFLUX DISEASE WITHOUT ESOPHAGITIS ESO2001 on May 30, 2023 3:42:10 PM UT D64.9 ICD10 ANEMIA, UNSPECIFIED [id number] on May 30, 2023 3:42:10 PM UT D68.51 ICD10 ACTIVATED PROTEIN C RESISTAN CE [id number] on May 30, 2023 3:42:10 PM UT Z79.899 ICD10 OTHER RESIDENTIAL (CURRENT) DR UG THERAPY [id number] on May 30, 2023 3:42:10 PM UT M10.9 ICD10 GOUT, UNSPECIFIED [id number] on May 30, 2023 3:42:10 PM UT CARE TEAM Care Dry Yard Worker Role ADRIANNA SARAVIA Primary Attending MEAGAN GAMBINO Referring DIDI GILL Primary Care ADRIANNA SARAVIA Admitting ADRIANNA SARAVIA Surgeon HOSPITAL DISCHARGE INSTRUCTION DISCHARGE INSTRUCTION Encounter [id number] Admit Date May 24, 2023 12:29 :00 PM UT Discharge Date May 24, 2023 5:29: 00 PM [facility] PATIENT EDUCATION SUMMARY Patient/Visit Information: Patient Name: ROB JEAN Diag: Attending Caregiver: MANJIT RODAS MD Discharge Instruction Sheets Provided: *[place] Patient Portal *BRBN Social Determinants of Health *BRBN Suicidal Feelings: How to Help Yourself (LPNT) () Colonoscopy, Adult, Care After, Ywtl-hi-Fuwu General Anesthesia, Adult, Care After Smoking\Tobacco Cessation - [facility] () () Upper Endoscopy, Adult, Care After Patient Instructions: Followup Appointments/Instructions: HISTORY AND PHYSICAL NOTE HISTORY AND PHYSICAL NOTE Note Title Nurse Intake Note Date Of Service May 22, 2023 2:32: 18 PM UTC Created By [id number] on May 22, 2023 2:32:18 PM UTC Signed By [id number] on May 22, 2023 2:32:24 PM UT Past Medical History Gastroesophageal reflux disease Hypothyroidism Sleep apnea Kidney stone Hyperlipidemia Hypertensive disorder Past Surgical History Procedure on ankle, RIGHT in 2001 Placement of stent in cardiac conduit in 1994 Drainage of septic arthritis, right ankle plate Colonoscopy Procedure on shoulder, left Colonoscopy in 2018 Family History Parents Father Mother Malignant neoplastic disease Social History tobacco use Never Smoked, 0 yrs alcohol use No Known Use drug use No Known Use marital status sexual behavior Identifies as Male Procedures and Surgeries (Current Encounter) None Electronically signed by Maude Landrum RN on 1032 CARE TEAM CARE waste reclaimer Role on Team Status Start Date End Date Update d By MANJIT RODAS MD PHY Surgeon normal May 24, 2023 12:29:00 PM [facility] May 24, 2023 5:29:00 PM [facility] [id number] on May 30, 2023 3:42:21 PM [facility] MAKI ANDRES MD Referring normal May 24, 2023 3:08:44 PM [facility] May 24, 2023 5:29:00 PM [facility] [id number] on May 30, 2023 3:42:21 PM [facility] BRIDGET Lin MD PHY PCP normal May 19, 2023 5:14:32 PM [facility] May 24, 2023 5:29:00 PM [facility] [id number] on May 30, 2023 3:42:21 PM [facility] MANJIT RODAS MD PHY Referring normal May 19, 2023 5:14:32 PM [facility] May 24, 2023 3:08:44 PM [facility] [id number] on May 30, 2023 3:42:21 PM [facility] MANJIT DAVIS Attending normal May 19, 2023 5:14:32 PM [facility] May 24, 2023 5:29:00 PM [facility] [id number] on May 30, 2023 3:42:21 PM [facility] MANJIT DAVIS Admitting normal May 19, 2023 5:14:32 PM [facility] May 24, 2023 5:29:00 PM [facility] [id number] on May 30, 2023 3:42:21 PM [facility]
--- OUTSIDE RECORDS SUMMARY | 2023-10-24 13:42 | XMS_ITS | Continuity of Care Document ---
Author Organization [facility] Phone Care Team Providers Care Land Survey Technician Name Role Phone BRIDGET DIDI Lin Primary Care AUSTIN BONDS Primary Attending AUSTIN BONDS Admitting AUSTIN BONDS Unavailable ALLERGIES AND ADVERSE REACTIONS ALLERGIES AND ADVERSE REACTIONS Code System Allergy Substance Adverse Reaction Date Reaction (Severity) [place] [address] RXNorm DAYPRO Adverse reaction to substance un active OKO6911 on October 18, 2023 4:05:[place] [address] RXNorm LISINOPRIL Adverse reaction to substance u active HVU3174 on October 18, 2023 4:05:43 PM UT 7315 RXNorm NIASPAN Adverse reaction to substance u active KBE5303 on October 18, 2023 4:05:43 PM UT 8660 RXNorm PROBENECID Adverse reaction to substance u active DWE7084 on October 18, 2023 4:05:43 PM [facility] FAMILY HISTORY RELATION: Father Status: Cause of : Unknown Age at : Unknown SNOMED-CT Diagnosis Age At Onset Information not available RELATION: Mother Status: Cause of : Unknown Age at : Unknown SNOMED-CT Diagnosis Age At Onset [id number] Malignant neoplastic disease RESULTS Patient: KARINANABILDelia ROB Tesfaye JR Date of : September 17 LABORATORY RESULTS Information is not available LABORATORY NARRATIVE RESULTS Information is not available RADIOLOGY RESULTS ORDER 100: LUMBAR 2 TO 3V (L OINC: [id number]) ORDER DATE: October 18, 2023 4:19:00 PM [facility] PERFORMING LAB: [address] [id number] Final Result Date: October 18, 2023 4:42:36 PM [address] [place] [address] Name: ROB JEAN Exam Date: 10/18/2023 : 1945 Age 78 years Gender: M Physician: Facility: [facility] Facility HSV: Outpatient Exam: LUMBAR 2 TO [...] Thank you for referring ROB JEAN to [facility]. Legally authenticated by GUILLAUME FLOYD MD 2023-10-18 12:42:36 ORDER 200: HIP LT 2V (LOINC: [id number]) ORDER DATE: October 18, 2023 4:19:00 PM [facility] PERFORMING LAB: [address] [id number] Final Result Date: October 18, 2023 4:42:[address] [place] [address] Name: ROB JEAN Exam Date: 10/18/2023 : 1945 Age 78 years Gender: M Physician: Facility: [facility] Facility HSV: Outpatient Exam: HIP LT 2V [...] Thank you for referring ROB JEAN to [facility]. Legally authenticated by GUILLAUME FLOYD MD 2023-10-18 12:42:44 ORDER 300: PELVIS 1 TO 2V (L OINC: [id number]) ORDER DATE: October 18, 2023 4:19:00 PM [facility] PERFORMING LAB: [address] [id number] Final Result Date: October 18, 2023 4:42:[address] [place] [address] Name: ROB JEAN Exam Date: 10/18/2023 : 1945 Age 78 years Gender: M Physician: Facility: [facility] Facility HSV: Outpatient Exam: PELVIS 1 TO [...] Thank you for referring ROB JEAN to [facility]. Legally authenticated by GUILLAUME FLOYD MD 2023-10-18 12:42:48 PATHOLOGY NARRATIVE RESULTS Information is not available MICROBIOLOGY RESULTS No Micro Labs/Results Exist for Patient BLOOD ADMIN RESULTS Information is not available MEDICATIONS HOME MEDICATIONS Status RXNORM [facility] Medication Dose Route Frequency Dates Comments Reported By Updated By Active 769089 60366 88013 1 allopurinol 300 mg tablet 300.0 MG ORAL DAILY Last Dose: [id number] on 2023 4:05:46 PM UT Active 108977 50831 57661 0 atorvastatin 80 mg tab 80.0 MG ORAL DAILY Last Dose: [id number] on 2023 4:05:46 PM UT Active 473705 27325 21093 0 bisoprolol fumarate 5 mg tab 2.5 MG ORAL DAILY Last Dose: [id number] on 2023 4:05:46 PM UT Active 849353 77698 34509 0 colchicine 0.6 mg tablet 0.6 MG ORAL DAILY Last Dose: [id number] on 2023 4:05:46 PM UT Active 997667 17333 07402 9 levothyroxin e 88 mcg tab 88.0 MCG ORAL DAILY Last Dose: [id number] on 2023 4:05:46 PM UT Active 253890 73980 19052 0 potassium chloride 20 mEq tablet, extended release 20.0 MEQ ORAL DAILY Last Dose: [id number] on 2023 4:05:46 PM UTC Active FreeT extMe d Prilosec 20 MG 20.0 MG ORAL DAILY Last Dose: [id number] on 2023 4:05:46 PM UTC Active 700082 48370 51419 0 Triamterene- HCTZ Tablet 37.5-25 MG 1.0 TAB ORAL DAILY Last Dose: [id number] on 2023 4:05:46 PM UTC Active 4116041 27823 78624 0 Xarelto Tablet 20 MG 20.0 MG ORAL DAILY Last Dose: [id number] on 2023 4:05:46 PM UT DISCHARGE MEDICATIONS Status RXNORM NDC Medication Dose Route Frequency Dates Comments Physician Updated By No Discharge Medication Info rmation Available INPATIENT MEDICATIONS Status RXNORM NDC Medication Dose Route Frequency Rat e Quantity Dates Comments Physician Updated By Discont inued [id number] 4168 3025 803 METHYLPREDN ISOLONE SODIUM SUCC 125 MG SOLR 125.0 MG INTRAV ENOUS ONE TIME ONLY Start: 2023 4:39:0 0 PM UTC End: 2023 4:39:0 0 PM UTC VAMSHI Willoughby MD INTERFAC ED on 2023 4:38:00 PM UT Discont inued 290725 0199 4089 511 NORCO 5-325 MG TABS 1.0 TAB ORAL ONE TIME ONLY Start: 2023 4:41:0 0 PM UTC End: 2023 4:41:0 0 PM UTC VAMSHI Willoughby MD INTERFAC ED on 2023 4:39:00 PM UT SOCIAL HISTORY SOCIAL HISTORY SNOMED-CT Social History Element Description Effective Dates Offered Cessation Comment UpdatedBy [id number] Historical Tobacco smoking status Never Smoked [id number] on May 22, 2023 2:32:01 PM UT [...] for each vital sign as of October 18, 2023 6:34:05 PM UT Loinc Code Vital Sign Activity Date Result Updated By 8310-5 Body temperature October 17 3:57:00 PM UT 98.6 [degF] [id number] on October 18, 2023 4:03:[place] [address]-9 Body weight Measured October 072023 4:03:26 PM UTC 109.77 kg (242.0 lb) [id number] on October 18, 2023 4:03:26 PM UTC 8462-4 Diastolic blood pressure October 18, 2023 5:18:00 PM UTC 73.0 mm[Hg] [id number] on October 18, 2023 5:20:23 PM UTC 52154-3 Oxygen saturation in Arterial blood by Pulse oximetry October 18, 2023 3:57:00 PM UTC 98.0 % [id number] on October 18, 2023 4:03:26 PM UTC 8480-6 Systolic blood pressure October 18, 2023 5:18:00 PM UTC 130.0 mm[Hg] [id number] on October 18, 2023 5:20:23 PM UTC PEDIATRIC GROWTH CHART - VITAL [...] October 18, 2023 3:52:00 PM [place] C [address] [address] Discharge October 18, 2023 5:34:00 PM UT C DISCHARGED TO HOME OR SELF CARE ENCOUNTER DIAGNOSES Notes information is not aleyda ilable. Code System Diagnosis Onset Date Diagnosis information is not available. ABSTRACT DIAGNOSES Code System Diagnosis Updated By Abstract Diagnosis informati on is not available. CARE TEAM Care Land Survey Technician Role DIDI BRIDGET Primary Care AUSTIN BONDS Primary Attending AUSTIN BONDS Admitting AUSTIN BONDS Referring CARE TEAM CARE seat mender Role on Team Status Start Date End Date Update d By VAMSHI Willoughby MD Referring normal October 18, 2023 4:43:15 PM UT October 18, 2023 5:34:00 PM [facility] [id number] on October 18, 2023 4:43:15 PM [facility] VAMSHI Willoughby MD Attending normal October 18, 2023 4:43:15 PM UT October 18, 2023 5:34:00 PM [facility] [id number] on October 18, 2023 4:43:15 PM [facility] VAMSHI Willoughby MD Admitting normal October 18, 2023 4:43:15 PM [facility] October 18, 2023 5:34:00 PM [facility] [id number] on October 18, 2023 4:43:15 PM [facility] BRIDGET Lin MD PHY PCP normal October 18, 2023 3:52:54 PM [facility] October 18, 2023 5:34:00 PM [facility] [id number] on October 18, 2023 4:43:15 PM [facility]
--- OUTSIDE RECORDS SUMMARY | 2023-10-24 13:42 | XMS_ITS | Continuity of Care Document ---
Author Organization [facility] Phone Care Team Providers Care Hiv/Aids Care Nurse Name Role Phone BRIDGET DIDI Lin Primary Care SEIVERSYUMIKO Primary Attending SEIVERS, YUMIKO Jensen Unavailable SEIVERS, YUMIKO W Admitting ALLERGIES AND ADVERSE REACTIONS ALLERGIES AND ADVERSE REACTIONS Code System Allergy Substance Adverse Reaction Date Reaction (Severity) [place] [id number] RXNorm DAYPRO Adverse reaction to substance un active [id number] on July 29, 2021 2:19:[place] [address] RXNorm LISINOPRIL Adverse reaction to substance u active [id number] on July 29, 2021 2:19:25 PM UT 73 RXNorm NIASPAN Adverse reaction to substance u active [id number] on July 29, 2021 2:19:25 PM UT 8612 RXNorm PROBENECID Adverse reaction to substance u active [id number] on July 29, 2021 2:19:25 PM UT FAMILY HISTORY RELATION: Father Status: Cause of : Unknown Age at : Unknown SNOMED-CT Diagnosis Age At Onset Information not available RELATION: Mother Status: Cause of : Unknown Age at : Unknown SNOMED-CT Diagnosis Age At Onset [id number] Malignant neoplastic disease RESULTS Patient: KARINANABILDelia ROB Tesfaye Date of : [birth year] 46 LABORATORY RESULTS ORDER 300: BUN (LOINC: 3094- 0) ORDER DATE: December 06, 2022 11:19:00 AM UT Specimen Source: Serum/Plasm a PERFORMING LAB: [address] [id number] Result Comment: Final Result Date: December 06, 2022 11:37:00 AM UT (TECH: MRB) LOINC TEST FLAG RESULT REFERENCE RANGE UPDA GREGORY BY 3094-0 Urea nitrogen [Mass/volume] in Serum or Plasma N 16 mg/dL 7 mg/dL - 18 mg/dL December 06 11:37:00 AM [facility] (TECH: MRB) ORDER 400: CREATININE (LOINC : 2160-0) ORDER DATE: December 06, 2022 11:19:00 AM UT Specimen Source: Serum/Plasm a PERFORMING LAB: [address] [id number] Result Comment: Final Result Date: December 06, 2022 11:37:00 AM [facility] (TECH: MRB) LOINC TEST FLAG RESULT REFERENCE RANGE UPDA GREGORY BY 2160-0 Creatinine [Mass/volume] in Serum or Plasma N 0.8 mg/dL 0.8 mg/dL - 1.3 mg/dL November 11:37:00 AM [facility] (TECH: MRB) 46579-4 Glomerular filtratio n rate/1.73 sq M.predicted by Creatinine-based formula (MDRD) N 100 mL/min >60 December 06, 2022 11:37:00 AM [facility] (TECH: MRB) LABORATORY NARRATIVE RESULTS Information is not available RADIOLOGY RESULTS ORDER 100: CT CHEST WITH CON TRAST (LOINC: 85022-4) ORDER DATE: December 06, 2022 11:19:00 AM [facility] PERFORMING LAB: [address] [id number] Final Result Date: November 082022 12:39:[address] [place] [address] Name: ROB JEAN Exam Date: 12/06/2022 : 1945 Age 77 years Gender: M Physician: YUMIKO DIANE Facility: [facility] Facility HSV: Outpatient Exam: CT CHEST WITH [...] Thank you for referring ROB JEAN to [facility]. Legally authenticated by POPE CYRIL Dooley [...] Priority [place] [address]-4 [facility] Collection method - Specimen ONE TIME 0 Routine December 06, 2022 11:19:00 AM [facility] SEIVERS YUMIKO W ACTUARY CLERK [id number] on December 06, 2022 11:19:00 AM [facility] SCHEDULED PROCEDURES [...] Description Effective Dates Offered Cessation Comment UpdatedBy [id number] Historical Tobacco smoking status Never Smoked Yes [id number] on February 21, 2018 2:29:40 PM [facility] SOCIAL HISTORY [...] I71.20 Admission December 06, 2022 11:06:00 AM [facility] [address] [address] Discharge December 06, 2022 5:06:00 PM UT DISCHARGED TO HOME OR SELF CARE ENCOUNTER DIAGNOSES Notes information is not aleyda ilable. Code System Diagnosis Onset Date Diagnosis information is not available. 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, WITHOUT RUPTURE, UNSPECIFIED [id number] on December 07, 2022 11:47:00 AM [facility] CARE TEAM Care Hiv/Aids Care Nurse Role DIDI GILL Primary Care YUMIKO DIANE Primary Attending YUMIKO DIANE Referring YUMIKO DIANE Admitting CARE TEAM CARE cytology supervisor Role on Team Status Start Date End Date Update d By BRIDGET Lin MD PHY PCP normal November 28, 2022 5:18:32 PM UT December 06, 2022 4:00:00 AM UTC [id number] on November 28, 2022 5:18:32 PM UT BENEDICTO Jensen APRN Referring normal November 28, 2022 5:18:32 PM UT December 06, 2022 4:00:00 AM UTC [id number] on November 28, 2022 5:18:32 PM UT BENEDICTO Jensen APRN Attending normal November 28, 2022 5:18:32 PM UT December 06, 2022 4:00:00 AM UTC [id number] on November 28, 2022 5:18:32 PM UT IVERS YUMIKO Jensen APRN Admitting normal November 28, 2022 5:18:32 PM UT December 06, 2022 4:00:00 AM UTC [id number] on November 28, 2022 5:18:32 PM UT
--- OUTSIDE RECORDS SUMMARY | 2023-10-24 13:42 | XMS_ITS | Continuity of Care Document ---
Author Organization [facility] Phone Care Team Providers Care Field Radio Operator Name Role Phone ADRIANNA SARAVIA Primary Attending [phone] MEAGAN GAMBINO Unavailable DIDI GILL Primary Care ADRIANNA SARAVIA Admitting ALLERGIES AND ADVERSE REACTIONS ALLERGIES AND ADVERSE REACTIONS Code System Allergy Substance Adverse Reaction Date Reaction (Severity) Comment [place] [address] RXNorm DAYPRO Adverse reaction to substance un active [id number] on July 29, 2021 2:19:25 PM [facility] 96811 RXNorm LISINOPRIL Adverse reaction to substance u active [id number] on July 29, 2021 2:19:25 PM [place] 7393 RXNorm NIASPAN Adverse reaction to substance u active [id number] on July 29, 2021 2:19:25 PM [place] 8698 RXNorm PROBENECID Adverse reaction to substance u active [id number] on July 29, 2021 2:19:25 PM UT ASSESSMENTS Hypertensive disorder ; Hypothyroidism ; FAMILY HISTORY RELATION: Father Status: Cause of : Unknown Age at : Unknown SNOMED-CT Diagnosis Age At Onset Information not available RELATION: Mother Status: Cause of : Unknown Age at : Unknown SNOMED-CT Diagnosis Age At Onset [id number] Malignant neoplastic disease PROBLEMS PATIENT PROBLEMS Code Description/Comments Category Status Upda cain By [id number] Hypertensive disorder active DEY 5462 on May 22, 2023 2:30:55 PM [facility] [id number] Hypothyroidism active [id number] on May 22, 2023 2:30:57 PM [facility] TREATMENT PLAN DISCHARGE MEDICATIONS Status RXNORM Medication Dose Route Frequency Dates Comments U pdated By Continued 773713 allopurinol 300 mg tablet 300 MG BY MOUTH ONCE DAILY Prescri bed: May 24, 2023 11:38:4 3 AM [facility] [id number] on May 24, 2023 11:38:43 AM [facility] Continued 675721 levothyroxine 88 mcg tab 88 MCG BY MOUTH ONCE DAILY Prescri bed: May 24, 2023 11:38:4 3 AM [facility] [id number] on May 24, 2023 11:38:43 AM UT Continued 108502 colchicine 0.6 mg tablet 0.6 MG BY MOUTH ONCE DAILY Prescri bed: May 24, 2023 11:38:4 3 AM [facility] [id number] on May 24, 2023 11:38:43 AM [facility] Continued 846901 bisoprolol fumarate 5 mg tab 2.5 MG BY MOUTH ONCE DAILY Prescri bed: May 24, 2023 11:38:4 3 AM [facility] [id number] on May 24, 2023 11:38:43 AM [facility] Continued 293813 atorvastatin 80 mg tab 80 MG BY MOUTH ONCE DAILY Prescri bed: May 24, 2023 11:38:4 3 AM [facility] [id number] on May 24, 2023 11:38:43 AM [facility] Continued Prilosec 20 MG 20 MG BY MOUTH ONCE DAILY Prescri bed: May 24, 2023 11:38:4 3 AM [facility] [id number] on May 24, 2023 11:38:43 AM [facility] Continued 422271 potassium chloride 20 mEq tablet, extended release 20 MEQ BY MOUTH ONCE DAILY Prescri bed: May 24, 2023 11:38:4 3 AM [facility] [id number] on May 24, 2023 11:38:43 AM [facility] Continued 0601872 Xarelto Oral Tablet 20 MG 20 MG BY MOUTH ONCE DAILY Prescri bed: May 24, 2023 11:38:4 3 AM [facility] [id number] on May 24, 2023 11:38:43 AM [facility] Continued 286671 Triamterene-HCT Z Oral Tablet 37.5-25 MG 1 TAB BY MOUTH ONCE DAILY Prescri bed: May 24, 2023 11:38:4 3 AM [facility] [id number] on May 24, 2023 11:38:43 AM [facility] PATIENT OPEN ORDERS Code System Description Frequency Occurrences Priority [place] [address] [facility] Specimen type ONE TIME 0 Routine May 24, 2023 7:25:00 PM [facility] MANJIT RODAS MD [id number] on May 24, 2023 7:26:00 PM [facility] SCHEDULED PROCEDURES Code System Description Status Scheduled Date Upd ated By Patient scheduled procedure information is not available. MEDICATIONS HOME MEDICATIONS Status RXNORM [facility] Medication Dose Route Frequency Dates Comments Reported By Updated By Active 304961 64573 17662 0 atorvastatin 80 mg tab 80.0 MG BY MOUTH DAILY Last Dose: PATIENT [id number] on May 22, 2023 2:26:35 PM [facility] Active 500828 22250 66428 0 bisoprolol fumarate 5 mg tab 2.5 MG BY MOUTH DAILY Last Dose: PATIENT [id number] on May 22, 2023 2:26:58 PM [facility] Active 744839 15398 61590 9 levothyroxin e 88 mcg tab 88.0 MCG BY MOUTH DAILY Last Dose: PATIENT [id number] on May 22, 2023 2:27:39 PM [facility] Active Cy selby Prilosec 20 MG 20.0 MG BY MOUTH DAILY Last Dose: PATIENT [id number] on May 22, 2023 2:28:31 PM [facility] Active 438375 03207 24379 0 potassium chloride 20 mEq tablet, extended release 20.0 MEQ BY MOUTH DAILY Last Dose: PATIENT [id number] on May 22, 2023 2:28:04 PM [facility] Active 787998 10233 37965 1 allopurinol 300 mg tablet 300.0 MG BY MOUTH DAILY Last Dose: PATIENT [id number] on May 22, 2023 2:26:13 PM [facility] Active 320763 96619 84215 0 colchicine 0.6 mg tablet 0.6 MG BY MOUTH DAILY Last Dose: PATIENT [id number] on May 22, 2023 2:27:17 PM [facility] Active 803302 92843 74403 0 Triamterene- HCTZ Oral Tablet 37.5-25 MG 1.0 TAB BY MOUTH DAILY Last Dose: PATIENT [id number] on May 22, 2023 2:29:17 PM [facility] Active 3178779 36161 61319 0 Xarelto Oral Tablet 20 MG 20.0 MG BY MOUTH DAILY Last Dose: PATIENT [id number] on May 22, 2023 2:29:47 PM [facility] DISCHARGE MEDICATIONS Status RXNORM [facility] Medication Dose Route Frequency Dates Comments Physician Updated By Javan selby [id number] 8235 0121 001 allopurinol 300 mg tablet 300.0 MG BY MOUTH ONCE DAILY Prescr ibed: May 24, 2023 11:38: 43 AM UT MANJIT RODAS MD PHY [id number] on May 24, 2023 11:38:43 AM UTC Continue d 799947 4718 0096 809 levothyroxi ne 88 mcg tab 88.0 MCG BY MOUTH ONCE DAILY Prescr ibed: May 24, 2023 11:38: 43 AM UT MANJIT RODAS MD PHY [id number] on May 24, 2023 11:38:43 AM UTC Continue d 090457 3540 8037 230 colchicine 0.6 mg tablet 0.6 MG BY MOUTH ONCE DAILY Prescr ibed: May 24, 2023 11:38: 43 AM [facility] MANJIT RODAS MD PHY [id number] on May 24, 2023 11:38:43 AM UTC Continue d 457710 4613 7027 030 bisoprolol fumarate 5 mg tab 2.5 MG BY MOUTH ONCE DAILY Prescr ibed: May 24, 2023 11:38: 43 AM [facility] MANJIT RODAS MD PHY [id number] on May 24, 2023 11:38:43 AM UTC Continue d 128871 5320 1017 510 atorvastati n 80 mg tab 80.0 MG BY MOUTH ONCE DAILY Prescr ibed: May 24, 2023 11:38: 43 AM [facility] MANJIT RODAS MD PHY [id number] on May 24, 2023 11:38:43 AM UTC Continue d Free Text Med Prilosec 20 MG 20.0 MG BY MOUTH ONCE DAILY Prescr ibed: May 24, 2023 11:38: 43 AM [facility] MANJIT RODAS MD PHY [id number] on May 24, 2023 11:38:43 AM UTC Continue d 012800 9283 0013 400 potassium chloride 20 mEq tablet, extended release 20.0 MEQ BY MOUTH ONCE DAILY Prescr ibed: May 24, 2023 11:38: 43 AM [facility] MANJIT RODAS MD PHY [id number] on May 24, 2023 11:38:43 AM UTC Continue d 7915372 1416 8057 910 Xarelto Oral Tablet 20 MG 20.0 MG BY MOUTH ONCE DAILY Prescr ibed: May 24, 2023 11:38: 43 AM [facility] MANJIT RODAS MD PHY [id number] on May 24, 2023 11:38:43 AM UTC Continue d 985192 3894 9009 030 Triamterene -HCTZ Oral Tablet 37.5-25 MG 1.0 TAB BY MOUTH ONCE DAILY Prescr ibed: May 24, 2023 11:38: 43 AM [facility] MANJIT RODAS MD PHY [id number] on May 24, 2023 11:38:43 AM [facility] INPATIENT MEDICATIONS Status RXNORM [facility] Medication Dose Route Frequency Rat e Quantity Dates Comments Physician Updated By Milli inued 503593 0809 4775 000 lactated ringers (LR) SOLN 1000. 0 ML INTRAV ENOUS NOW 125.0 ML/HR Start: May 24, 2023 10:39: 00 AM UT End: May 24, 2023 11:38: 43 AM [facility] MANJIT RODAS MD [id number] on May 24, 2023 12:56:00 PM [facility] Milli inued 6332 3027 050 propofol (DIPRIVAN) 500 MG/50ML EMUL 50.0 ML INTRAV ENOUS ONE TIME ONLY Start: May 24, 2023 2:09:0 0 PM UT End: May 24, 2023 2:09:0 0 PM [facility] MANJIT RODAS MD INTERFAC ED on May 24, 2023 2:08:00 PM [facility] SOCIAL HISTORY SOCIAL HISTORY SNOMED-CT Social History Element Description Effective Dates Offered Cessation Comment UpdatedBy [id number] Current Tobacco smoking status Never Smoked [id number] on May 22, 2023 2:32:01 PM [facility] SOCIAL HISTORY - Gender Sex: Male SOCIAL [...] for each vital sign as of May 25, 2023 4:08:53 AM [facility] Loinc Code Vital Sign Activity Date Result Updated By 8302-2 Body height May 22, 2023 2:25:29 PM UT 180.34 cm (71.0 in) [id number] on May 22, 2023 2:25:29 PM [facility] 05706-3 Body mass index (BMI) [Ratio] May 22, 2023 2:25:29 PM UTC 35.84 kg/m2 [id number] on May 22, 2023 2:25:29 PM [facility] 3140-1 Body Surface Area Derived From Formula May 22, 2023 2:25:29 PM [facility] 2.346 m2 [id number] on May 22, 2023 2:25:29 PM [facility] 02442-9 Body weight Measured May 21 2:25:29 PM [facility] 116.573 kg (257.0 lb) [id number] on May 22, 2023 2:25:29 PM [facility] PEDIATRIC GROWTH CHART - VITAL SIGNS This [...] PAIN Admission May 24, 2023 12:29:00 PM [facility] [address] [address] Discharge May 24, 2023 5:29:00 PM [facility] DI SCHARGED TO HOME OR SELF CARE ENCOUNTER DIAGNOSES Notes information is not aleyda ilable. Code System Diagnosis Onset Date Diagnosis information is not available. ABSTRACT DIAGNOSES Code System Diagnosis Updated By R10.32 ICD10 LEFT LOWER QUADRANT PAIN FJO 4281 on May 19, 2023 5:14:32 PM [facility] CARE TEAM Care Field Radio Operator Role ADRIANNA SARAVIA Primary Attending MEAGAN GAMBINO Referring [facility] Primary Care ADRIANNA SARAVIA Admitting HOSPITAL DISCHARGE INSTRUCTION DISCHARGE INSTRUCTION Encounter [id number] Admit Date May 24, 2023 12:29 :00 PM [facility] Discharge Date May 24, 2023 5:29: 00 PM [facility] PATIENT EDUCATION SUMMARY Patient/Visit Information: Patient Name: ROB Tesfaye JR JEAN Diag: Attending Caregiver: MANJIT RODAS MD Discharge Instruction Sheets Provided: *Secretary Patient Portal *BRBN Social Determinants of Health *BRBN Suicidal Feelings: How to Help Yourself (LPNT) () Colonoscopy, Adult, Care After, Drmm-nr-Llri General Anesthesia, Adult, Care After Smoking\Tobacco Cessation - [facility] () () Upper Endoscopy, Adult, Care After Patient Instructions: Followup Appointments/Instructions: HISTORY AND PHYSICAL NOTE HISTORY AND PHYSICAL NOTE Note Title Nurse Intake Note Date Of Service May 22, 2023 2:32: 18 PM UTC Created By [id number] on May 22, 2023 2:32:18 PM UTC Signed By [id number] on May 22, 2023 2:32:24 PM UTC Past Medical History Gastroesophageal reflux disease Hypothyroidism Sleep apnea Kidney stone Hyperlipidemia Hypertensive disorder Past Surgical History Procedure on ankle, RIGHT in 2002 Placement of stent in cardiac conduit in 1994 Drainage of septic arthritis, right ankle plate Colonoscopy Procedure on shoulder, left Colonoscopy in 2019 Family History Parents Father Mother Malignant neoplastic disease Social History tobacco use Never Smoked, 0 yrs alcohol use No Known Use drug use No Known Use marital status sexual behavior Identifies as Male Procedures and Surgeries (Current Encounter) None Electronically signed by Maude Landrum RN on 1032 CARE TEAM CARE teradata architect Role on Team Status Start Date End Date Update d By MAKI ANDRES MD Referring normal May 24, 2023 3:08:44 PM UT May 24, 2023 5:29:00 PM UT [id number] on May 24, 2023 3:08:44 PM UT BRIDGET DAVIS PCP normal May 19, 2023 5:14:32 PM UT May 24, 2023 5:29:00 PM UT [id number] on May 24, 2023 3:08:44 PM [facility] MANJIT DAVIS Referring normal May 19, 2023 5:14:32 PM UT May 24, 2023 3:08:44 PM UT [id number] on May 24, 2023 3:08:44 PM [facility] MANJIT DAVIS Attending normal May 19, 2023 5:14:32 PM UT May 24, 2023 5:29:00 PM UT [id number] on May 24, 2023 3:08:44 PM [facility] MANJIT DAVIS Admitting normal May 19, 2023 5:14:32 PM UT May 24, 2023 5:29:00 PM UT [id number] on May 24, 2023 3:08:44 PM [facility]
[2023-10-24 13:57] VITALS: BP 105/65; PULSE 56; RESP 16; TEMP 36.7; O2SAT 96; BMI 33.5
[2023-10-24 14:07] VITALS: BP 140/70; PULSE 49; RESP 18; O2SAT 94
[2023-10-24] MEDS: IOPAMIDOL-200 (41%);10ML VIAL 10 ML IV (14:07)
[2023-10-24] MEDS: BUPIVACAINE 0.25% 10ML INJ 25 MG IJ (14:07)
[2023-10-24] MEDS: LIDOCAINE 1% 5ML PF VIAL 5 ML (14:07)
[2023-10-24] MEDS: methylPREDNISolone ACETATE 80MG/ML VIAL 80 MG (14:07)
[2023-10-24 14:08] VITALS: BP 140/70; PULSE 54; RESP 18; O2SAT 94
[2023-10-24 14:18] VITALS: BP 117/69; PULSE 54; RESP 18; O2SAT 96
--- NOTE | 2023-10-24 14:18 | P.PCN_ITS ---
Procedure Date: 10/24/23 Time: 14:00 Anesthesiologist:: Robert Gonzalez CRNA Complications:: None Pre-procedure Diagnosis:: Left piriformis syndrome Post-procedure Diagnosis:: Same. Indications for Procedure:: Patient is a very pleasant 78-year-old male who comes our clinic today for a left piriformis muscle injection. Patient describes left buttock pain as constant, dull, aching. He rates his pain 7/10. Procedure Details:: Details of procedure explained the patient. The patient taken procedure and placed in the prone position on the fluoroscopy table. The area over the left buttock was cleaned using chlorhexidine as a cleansing solution. Using a 22- gauge 3-1/2 inch needle the left piriformis muscle was accessed with ease. Needle position was confirmed using 0.5 cc contrast dye and a lateral spread. At this time after negative aspiration 5 cc of solution containing 2 cc of 1% lidocaine +2 cc of 0.25% Marcaine and 1 cc of Depo-Medrol 40 mg/mL was injected. Patient tolerated procedure without difficulty. No complications. Plan and Disposition:: Patient was discharged without incident.
== END 2023-10-24 14:18 | disposition home or self-care (01) ==
PROVIDERS: PCP Family Medicine; Visit Provider Nurse Anesthetist, Certified Registered
DX: G57.02 Lesion of sciatic nerve, left lower limb (principal); M25.552 Pain in left hip; M79.18 Myalgia, other site
CPT/HCPCS: 20552; 77002; J1010; Q9966